=== PATIENT | female | born 1935 | race Caucasian/White ===

== ENCOUNTER 2016-11-23 12:50 | Emergency (ER) | payer MEDICARE ==
[~2016-11-23] VITALS: Ht 144.8 cm; Wt 93.6 kg
[~2016-11-23 12:50] MED LIST: ACET-171 PO; DULO60CA42 PO; FISH1CAP15 PO; FLUO10CA20 PO; HYDR-4003 PO; LEVO75TA4 PO; LOPE1TAB13 PO; PROP10TA8 PO; RIVA4.5C5 PO; TRAM50TA2 PO; VIT1TABL25 PO; VITA1CAP16 PO; [UNRECOGNIZED DRUG - CODE] PO
[2016-11-23 12:57] VITALS: BP 124/57; PULSE 53; RESP 16; O2SAT 93
--- NOTE | 2016-11-23 13:11 | ED.REPORT ---
HPI-Trauma Minor / Fall Date of Service November 23, 2016 ED Provider: Eugenio Mathew MD The patient is a 81 year old female w/ a hx of short term memory loss and dementia who presents to the ED due to hip and leg pain after a GLF when she was sitting in a recliner chair that fell over on top of her. She denies chest pain, SOB, LOC, dizziness, lightheadedness, weakness, numbness or tingling. Pt is confused and a very poor historian. Nursing Notes Stated Complaint: GROUND LEVEL FALL Chief Complaint: Multiple Trauma/Fall Nursing Notes Reviewed: Yes Allergies: Coded Allergies: Penicillins (Verified Allergy, Severe, anaphylaxis, 11/23/16) ciprofloxacin (Verified Allergy, Severe, shortness of breath, 11/23/16) capsaicin (Verified Allergy, Intermediate, burning, 11/23/16) donepezil (Verified Allergy, Intermediate, hallucinations, 11/23/16) lorazepam (Verified Allergy, Intermediate, hallucinations, 11/23/16) metronidazole (Verified Allergy, Intermediate, shortness of breath, ) blue dye (Verified Allergy, Mild, rash, 11/23/16) lisinopril (Verified Allergy, Mild, cough, 11/23/16) diclofenac (Verified Allergy, Unknown, 11/23/16) tramadol (Unverified Adverse Reaction, Mild, abdominal pain, 11/23/16) Scheduled Duloxetine (Cymbalta) 60 Mg Capsule.dr 60 MG PO DAILY Fish Oil/Dha/Epa (Fish Oil 1,200 mg Fish Oil) 1 Each Capsule 1 EACH PO DAILY Fluoxetine (Fluoxetine) 10 Mg Capsule 10 MG PO DAILY Glucosamine Sulfate (Glucosamine Sulfate) 1,000 Mg Capsule 1,500 MG PO HS Levothyroxine (Levothyroxine) 75 Mcg Tablet 50 MCG PO DAILY Propranolol HCl (Propranolol HCl) 10 Mg Tablet 20 MG PO TID Rivastigmine (Rivastigmine) 4.5 Mg Capsule 4.5 MG PO BID Vit A,C & E/Lutein/Minerals (Ocuvite with Lutein Tablet) 1 Each Tablet 1 EACH PO DAILY Vitamin B Complex & Vit C No.3 (B Complex with Vitamin C) 1 Each Capsule 1 EACH PO DAILY Scheduled PRN Acetaminophen (Acetaminophen) 500 Mg Tablet 650 MG PO Q8H PRN PRN For Pain Hydrocodone-Acetaminophen 5-325 mg (Hydrocodone-Acetaminophen 5-325 mg) 1 Each Tablet 1 TABLET PO Q8H PRN PRN For Pain Loperamide/Simethicone (Imodium Multi-Symptom Rel Cplt) 1 Each Tablet 1 EACH PO DAILY PRN PRN For Diarrhea or Loose Stool Tramadol (Tramadol) 50 Mg Tablet 50 MG PO Q4H PRN PRN For Pain General Time Seen by MD: 12:57 Chief Complaint Fall Hx Obtained From: Patient Arrived By: Walk-in Onset Occurred: Just prior to arrival Symptom Duration: Since onset Caused by: Accidental Location: Hip left Hip right Severity: Current: No pain currently Recent Healthcare: No recent doctor visit, No recent hospitalization Similar Sx Previous: No Past Medical History Past Medical History Lewy body dementia Depression Anxiety Polymyalgia rheumatica breast and colon cancer GERD Past Surgical History denies Smoking History Former Smoker Social History Alcohol Use: Denies alcohol use Drug Use: Denies drug use Other Social History: Local resident Ambulatory Status Independent Review of Systems Respiratory: Denies: Shortness of breath Musculoskeletal: Reports: Extremity pain (bilateral leg), Joint pain ( bilateral hip) Neurologic: Reports: Confusion, Denies: Change LOC, Dizziness, Headache, Lightheaded, Numbness, Problem walking, Weakness Complete sys rev & neg: except as marked. Cardiovascular: Denies: Chest pain Physical Exam Initial Vital Signs Vital Signs (First) Date Time Temp Pulse Resp B/P Pulse Ox O2 Delivery O2 Flow Rate FiO2 11/23/16 12:57 36.6 53 16 124/57 93 Room Air Initial VS: Reviewed Head / Eyes: Atraumatic, Normocephalic Respiratory: Breath sounds normal, Clear to auscultation, No respiratory distress Cardiovascular: Regular rate & rhythm, Heart sounds normal, Intact distal pulses Abdomen / GI: Soft, Non-tender, No guarding, No rebound, No distention Back: No CVA tenderness Skin: Warm, Dry Head / Eyes: Normocephalic, PERRL, EOMI ENT: Mucous membranes moist poor dentition no fluctuance no erythema Lower Extremity / Pelvis / MS: Inspection NL, Full range of motion diffuse tenderness of bilateral shins Interpretation & Diagnostics Lab Results Interpretation Test 11/23/16 14:50 Hold Urine Received (Received) X-Ray Interpretation Xray Interpretation: ANKLE X-RAY IMPRESSION: No visualized acute fracture or dislocation. However, if clinical concern and/or pain persist, short interval imaging followup in 7-10 days is recommended, as occult injury cannot be definitively excluded. Dictated by: Racquel Mitchell M.D. on 11/23/2016 at 13:57 Approved by: Racquel Mitchell M.D. on 11/23/2016 at 13:57 CT Abd / Pelvis Interpretation IMPRESSION: 1. Bilateral ovarian cystic lesions. These have slightly increased in size when compared with the study dated 08/27/14, and are unchanged in size when compared with the study dated 05/22/16. Given the chronicity of these findings, these likely represent simple ovarian cysts; however indolent cystic ovarian neoplasm cannot be excluded. Continued annual sonographic surveillance is recommended. Dictated by: Esther Rendon M.D. on 07/30/2016 at 16:50 Approved by: Esther Rendon M.D. on 07/30/2016 at 16:59 Study type: Abdominal CT no contrast Interpretation / Wet Read by: Interpret - Radiologist Re-Eval/Medical Decision Med Decision/Clinical Course 81-year-old female history of dementia presenting status post ground-level fall onto left hip and left ankle at assisted living facility. She is complaining of left hip and left ankle pain. She is ambulatory and her hip exam is completely benign. She does have mild tenderness over left lateral lower leg although x-ray ankle is negative. She is ambulatory without any difficulty. Her pain resolved while she was here. Discharged home in good condition with return precautions. Counseled Regarding: Diagnosis, Lab results, Need for follow-up, When/why to return to ED Discharge & Departure Impression: Primary Impression: Fall from ground level Additional Impressions: Pain, dental Vomiting Vomiting type: unspecified Vomiting Intractability: unspecified Nausea presence: unspecified Qualified Code: R11.10 - Vomiting, unspecified Disposition: Home Discharge Condition All VS Reviewed: Yes Condition: Stable Additional Instructions: Thank you for entrusting us with your care today. Your x-rays do not show any signs of fracture. Follow up with your primary care physician in the next week. Return to the Emergency Department for any new or worsening symptoms including dizziness, numbness, weakness, chest pain, shortness of breath, and fever. I hope you feel better soon, enjoy the sunshine! Referrals: Giuliano Segundo MD (PCP) Scribe Attestation Portion of this note were transcribed by Jo Dueñas. I, Dr. Mathew, personally performed the history, physical exam, and medical decision-making: I reviewed and confirmed the accuracy for the information in the transcribed note. Signed by: des Sheffield, 11/23/16 1500 copies to: Giuliano Segundo MD, Ben M MD November 23, 2016 13:11 Jo Dueñas November 23, 2016 13:19
--- NOTE | 2016-11-23 13:59 | DRSVH ---
PROCEDURE: X-RAY LEFT ANKLE, MINIMUM THREE VIEWS ([id number]) INDICATIONS: trauma TECHNIQUE: 3 views of the ankle were acquired. COMPARISON: None. FINDINGS: Bones: No fractures or dislocations. Ankle mortise is normally aligned. No suspicious bony lesions . Soft tissues: No tibiotalar joint effusion. Achilles tendon appears normal. IMPRESSION: No visualized acute fracture or dislocation. However, if clinical concern and/or pain pe rsist, short interval imaging followup in 7-10 days is recommended, as occult injury cannot be defini tively excluded. Dictated by: Racquel Mitchell M.D. on 11/23/2016 at 13:57 Approved by: Racquel Mitchell M.D. on 11/23/2016 at 13:57
[2016-11-23 14:51] VITALS: BP 144/58; PULSE 50; RESP 16; O2SAT 98
== END 2016-11-23 14:52 | disposition home or self-care (01) ==
LOC: SED 12:50 → EDBD 12:50 → SED 14:52
DX: K08.89 Other specified disorders of teeth and supporting structures (principal); R11.10 Vomiting, unspecified; M25.552 Pain in left hip; M25.572 Pain in left ankle and joints of left foot; W07.XXXA Fall from chair, initial encounter; Y92.129 Unspecified place in nursing home as the place of occurrence of the external cause; Y93.89 Activity, other specified; Y99.8 Other external cause status; F03.90 Unspecified dementia, unspecified severity, without behavioral disturbance, psychotic disturbance, mood disturbance, and anxiety; N83.201 Unspecified ovarian cyst, right side; N83.202 Unspecified ovarian cyst, left side; F32.9 Major depressive disorder, single episode, unspecified; F41.9 Anxiety disorder, unspecified; K21.9 Gastro-esophageal reflux disease without esophagitis; M35.3 Polymyalgia rheumatica; Z87.891 Personal history of nicotine dependence; Z88.0 Allergy status to penicillin; Z88.1 Allergy status to other antibiotic agents; Z88.8 Allergy status to other drugs, medicaments and biological substances; Z88.6 Allergy status to analgesic agent; Z88.5 Allergy status to narcotic agent

== ENCOUNTER → 2017-02-25 | Day surgery (SDC) | payer MEDICARE ==
[~2017-02-25] VITALS: Ht 152.4 cm; Wt 98.4 kg
[~2017-02-25] MED LIST changes: +IBUP-1827 PO; +Ketamine 10 mg/mL 20 mL Inj ONE; +Lactated Ringer's 1,000 ML IV ONE; +Lactated Ringer's 1,000 ML IV SCH; +METH20TA PO; +MetoCLOpramide 5 mg/mL 2 mL Inj IVPUSH PRN; +Ondansetron 2 mg/mL 2 mL Inj IVPUSH PRN; +Propofol 10,000 mCg/mL 20 mL Inj ONE
--- NOTE | 2017-02-25 07:49 | PCM.HPANE ---
Patient Data Surgeon Admitting Provider: Attending Provider:Bishop Verdin MD Primary Care Physician:Giuliano Segundo MD Other Provider:[facility] Reason for Visit Melena Ht/WT & BMI Body Mass Index Allergies Coded Allergies: Penicillins (Verified Allergy, Severe, anaphylaxis, 11/23/16) ciprofloxacin (Verified Allergy, Severe, shortness of breath, 11/23/16) capsaicin (Verified Allergy, Intermediate, burning, 11/23/16) donepezil (Verified Allergy, Intermediate, hallucinations, 11/23/16) lorazepam (Verified Allergy, Intermediate, hallucinations, 11/23/16) metronidazole (Verified Allergy, Intermediate, shortness of breath, ) blue dye (Verified Allergy, Mild, rash, 11/23/16) lisinopril (Verified Allergy, Mild, cough, 11/23/16) diclofenac (Verified Allergy, Unknown, 11/23/16) tramadol (Verified Adverse Reaction, Mild, abdominal pain, 02/25/17) Past Anesthesia History Anesthesia History: Denies:: Abnormal Airway, Anesthesia Reactions (had hallusinations), Difficult Intubation, Fam Anesthesia Reaction, Fam Malignant Hypertherm, Malignant Hyperthermia Diabetes History Hx Diabetes?: No MRSA MRSA: No Medications Hypertension Medication: No Home Meds Incl Beta Chantel: Yes Reported Medications Ibuprofen 600 Mg [id number] Mg PO QID PRN For Pain Ref 0 02/25/17 Methylphenidate (Ritalin)20 Mg Jspjkd58 Mg PO DAILY Ref 0 02/25/17 Vitamin B Complex & Vit C No.3 (B Complex with Vitamin C)1 Each Capsule1 Each PO DAILY 05/22/16 Glucosamine Sulfate 1,000 Mg Capsule1,500 Mg PO HS 05/22/16 Fluoxetine 10 Mg Prlfivz53 Mg PO DAILY Ref 0 05/22/16 Loperamide/Simethicone (Imodium Multi-Symptom Rel Cplt)1 Each Tablet1 Each PO DAILY PRN For Diarrhea or Loose Stool 05/22/16 Hydrocodone-Acetaminophen 5-325 mg 1 Each Tablet1 Tablet PO Q8H PRN For Pain Ref 0 05/22/16 Acetaminophen 500 Mg Urtlkp573 Mg PO Q8H PRN For Pain 05/22/16 Propranolol HCl 10 Mg Mwnjty73 Mg PO TID 90 Days Ref 0 08/27/14 Vit A,C & E/Lutein/Minerals (Ocuvite with Lutein Tablet)1 Each Tablet1 Each PO DAILY 08/27/14 Levothyroxine 75 Mcg Pjylps14 Mcg PO DAILY 30 Days Ref 0 08/27/14 Fish Oil/Dha/Epa (Fish Oil 1,200 mg Fish Oil)1 Each Capsule1 Each PO DAILY 08/27/14 Discontinued Reported Medications Tramadol 50 Mg Bmamzf02 Mg PO Q4H PRN For Pain Ref 0 05/22/16 Rivastigmine 4.5 Mg Capsule4.5 Mg PO BID 08/27/14 Duloxetine (Cymbalta)60 Mg Capsule.dr60 Mg PO DAILY Ref 0 08/27/14 History History of ENT Problems?: No HEENT History: Denies:: Abnormal Airway Difficult Intubation Hearing Problem Denture Type: None Teeth Condition: Within Normal Limits Hx of Heart Problems?: No Cardiovascular History: Denies:: Cardiac Surgery Chest Pain Congestive Heart Failure Edema Hypertension Irregular Heartbeat Pacemaker Thrombophlebitis Hx of Respiratory Problem?: No Respiratory History: Denies:: Asthma COPD Chest Surgery Dyspnea Emphysema Hemoptysis Pneumonia Tuberculosis Hx Neurologic Problems?: Yes Neurological History: Positive for:: CVA Dementia Dizziness (currently ) Headaches (currently ) Denies:: Alzheimer's Disease (father history ) Parkinson's Disease (father history ) Seizures Hx of GI Problems?: Yes Hx of Problems?: Yes Genitourinary History: Positive for:: Urinary Tract Infection Denies:: HX of Hemodialysis Kidney Stones HX of Peritoneal Dialysis: No Female Hx: Positive for:: Problems with Breasts? (left breast pain currently MD aware ) Denies:: Currently Hx Musculoskeletal Problems?: Yes Musculoskeletal History: Denies:: Back Injury Joint Replacement Musculoskeletal Trauma Hx of Psycho/Social Problems?: Yes Psycho Social History: Positive for:: Anxiety Hx Depression Denies:: Bipolar Disorder Suicide Attempt Hx Surgeries?: Yes Hx Any Other Health Problems?: Yes Other History: Positive for:: Cancer (breast and colon) Hospitalization Thyroid Disease (hypothy) History Blood Transfusions: Denies:: Blood Transfuse Reaction Blood Transfusions Hx Diabetes: No Hx Alcohol Use: NoHx Substance Use: No Smoking Status: Former Smoker Have You Smoked inLast 12 mo: No Stop/Bang Treated for Sleep Apnea?: No Do You Have a CPAP Machine?: No Risk Assessment Category Category 1A: Patient has history of documented sleep apnea, and HAS NOT received any narcotic, sedative or anesthesia administration during this stay. Category 1B: Patient has history of documented sleep apnea, and HAS received any narcotic , sedative or anesthesia administration during this stay Category 2: Patient has SUSPECTED Obstructive Sleep Apnea, and HAS received any narcotic , sedative or anesthesia administration during this stay. Category 3: Patient has SUSPECTED Obstructive Sleep Apnea and HAS NOT received narcotic, sedative or anesthesia administration during this stay. Category 4: Outpatient in Procedural Areas with known sleep apnea or who screen positive for High Risk via the STOP/BANG questionnaire. Exam Exam General Appearance: Alert, Oriented X3, Cooperative, No Acute Distress HEENT/AIRWAY: MP 2 Lungs: Clear to Auscultation, Normal Air Movement Heart: Exam Unremarkable, Regular Rate/Rhythm, No Murmurs/Rubs/Gallops Plan Impression Patient chart reviewed, patient interviewed and anesthestic plan with risks, benefits, and alternatives discussed, and informed consent obtained. NPO per Anesth. Guidelines: Yes ASA Physical Status: ASA3 Severe Disease (bmi 42) Anesthetic Plan: MAC Bene/Risks/Altern/Consents: Yes HP Complete Prior to Induction: Yes Ryan Farmer MD Feb 25, 2017 07:49
[2017-02-25 13:29] VITALS: BP 155/71; PULSE 47; RESP 16; O2SAT 98
[2017-02-25 14:40] VITALS: BP 135/66; PULSE 53; RESP 16; O2SAT 98
--- NOTE | 2017-02-25 14:42 | PCM.ENDEGD ---
EGD Date of Service: Feb 25, 2017 Physician Bishop Verdin MD Pre Procedure Diagnosis: Melena Post Procedure Dx & Findings: Hepatitis esophageal ulcer erosive gastropathy Procedure Esophagogastroduodenoscopy PROCEDURE IN DETAIL: The patient by anesthesiology After proper sedation, Olympus video endoscope was inserted into patient's mouth and esophagus was successfully intubated. Scope introduced esophagus. Esophagus showed normal shiny whitish mucosa consistent with squamous cell component. Z line was at 35 cm from the incisors. Inflammation and irritation noted as well as a couple of 2-3 mm clean-based ulcers. Biopsies obtained at the inflammation and ulcers. As the scope advanced into the stomach, the stomach appeared to be cylindrical and long. Erosion gastropathy noted. Between the junction of the body of the stomach there was sharp turn. We went into the antrum and the antrum also showed erosive gastropathy. Because the body was cylindrical with decreased lumen size, retroflexion was not attempted in the body. In the antrum, retroflexion was done to see if a good look at the GE junction. When retroflexion was done in the antrum, I noticed some blood from the body antrum junction. Scope was withdrawn and there was a 1 cm superficial tear. 4 clips deployed. Complete hemostasis achieved. After this , we did not try to retroflex anymore. Stomach was easily inflated and deflatable using air. Scope further advanced to the distal duodenum. Duodenum revealed normal villous structures with normal appearing folds without any mass ulcer erosion. Impression Esophagitis esophageal ulcer Erosive gastropathy Stomach seems to be postsurgical. Superficial tear between antrum and the body. 4 clips deployed to completely seal off the defect. Recommendation Clear liquid diet PPI. Presedation Assessment Risks and Benefits Informed consent was obtained from the patient after all risks and benefits including but not limited to drug reaction, infection, pain, bleeding, perforation, as well as alternatives were discussed. Patient monitoring Continuous pulse oximetry, cardiac monitoring, blood pressure monitoring, IV access, and oxygen at 2L per nasal cannula. Complications There were no periprocedural complications identified. Post Procedure Plan Post Procedure Recommendations 1. Restrict activities today. 2. Resume normal activities in the morning. 3. Resume medications. 4. GERD behavioral modification: - Avoid fatty, acidic, spicy, large meals - Do not lie down after meals - Do not eat or drink anything for at least 2 1/2 hours before going to bed at night - Discontinue tobacco and alcohol - Decrease or avoid caffeine - Avoid chocolate and mints - Decrease weight - Avoid aspirin and non steroidal anti-inflammatory agents (NSAID) such as Aleve, Advil, Mobic, Naproxen, Ibuprofen, etc 5. Add proton pump inhibitor. Take 30 minutes before 1st meal of the day. 6. Patient informed of normal post procedure side effects as bloating, drowsiness, blood streaking in the stool 7. If gastric biopsy reveal H.pylori, continue with appropriate treatment 8. If small bowel biopsy reveals celiac, continue with appropriate treatment 9. Please don't hesitate to call me with any questions Bishop Verdin MD Feb 25, 2017 14:42
--- NOTE | 2017-02-25 15:02 | PCM.ENDEGD ---
EGD Date of Service: Feb 25, 2017 Physician Bishop Verdin MD Pre Procedure Diagnosis: Diarrhea Post Procedure Dx & Findings: Possible Kim's. Gastritis. Procedure Esophagogastroduodenoscopy PROCEDURE IN DETAIL: Sedation by anesthesiology After proper sedation, Olympus video endoscope was inserted into patient's mouth and esophagus was successfully intubated. Scope introduced esophagus. Esophagus showed normal shiny whitish mucosa consistent with squamous cell component. Z line was at 40 cm from the incisors. Small irregularity less than 2 cm with salmon-colored mucosa noted at the Z line consistent with Kim 's esophagus. Four-quadrant biopsy obtained every 2 cm. Narrow banding done. No mass ulcer nodule erosion mucosa abnormality. Scope further advanced to the stomach. Stomach mucosa showed some edema and redness consistent with gastritis. Biopsies done.. Cardia fundus body antrum pylorus were all visualized. Retroflexion was done. Stomach was easily inflated and deflatable using air. Scope further advanced to the distal duodenum. Duodenum revealed normal villous structures with normal appearing folds without any mass ulcer erosion. 5 biopsies obtained in the duodenum for celiac disease. 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 Patient monitoring Continuous pulse oximetry, cardiac monitoring, blood pressure monitoring, IV access, and oxygen at 2L per nasal cannula. Complications There were no periprocedural complications identified. Post Procedure Plan Post Procedure Recommendations 1. Restrict activities today. 2. Resume normal activities in the morning. 3. Resume medications. 4. GERD behavioral modification: - Avoid fatty, acidic, spicy, large meals - Do not lie down after meals - Do not eat or drink anything for at least 2 1/2 hours before going to bed at night - Discontinue tobacco and alcohol - Decrease or avoid caffeine - Avoid chocolate and mints - Decrease weight - Avoid aspirin and non steroidal anti-inflammatory agents (NSAID) such as Aleve, Advil, Mobic, Naproxen, Ibuprofen, etc 5. Add proton pump inhibitor. Take 30 minutes before 1st meal of the day. 6. Patient informed of normal post procedure side effects as bloating, drowsiness, blood streaking in the stool 7. If gastric biopsy reveal H.pylori, continue with appropriate treatment 8. If small bowel biopsy reveals celiac, continue with appropriate treatment 9. Please don't hesitate to call me with any questions Bishop Verdin MD Feb 25, 2017 15:02
[2017-02-25 15:04] VITALS: BP 135/66; PULSE 49; RESP 16; O2SAT 98
--- NOTE | 2017-02-26 09:22 | PCM.ANEP1 ---
Post Anesthesia PACU Phase 1 Assessment Level of Alertness: Awake, talking MAY's with Equal Strength: No Pain: No Nausea or Vomiting: No CV Function & Hydration Stable: Yes Airway Device: none Lungs: Clear to Auscultation, Normal Air Movement Dermatome Level: Full Sensation PACU Phase 2 Assessment Complications: No Follow up Care: No Patient Instructions Provided: N/A Ryan Farmer MD Feb 26, 2017 09:22
--- NOTE | 2017-03-04 15:02 | PATH ---
SURGICAL PATHOLOGY Attending Physician:Bishop Verdin M.D. CASE STATUS: Signed Out PATIENT NAME: APOLINAR CARDOSO PID: [id number] : 1935 DATE COLLECTED:02/25/2017 00:00 SPECIMEN: 1: Gastric, Biopsy 2: Esophagus, Biopsy CLINICAL HISTORY: 1). GASTRIC BIOPSY RULE OUT H PYLORI 2). ESOPHAGUS BIOPSY FINAL DIAGNOSIS: 1. Stomach, Biopsy: Antral mucosa with reactive gastropathy. Negative for Helicobacter by immunohistochemistry. Negative for intestinal metaplasia. Negative for dysplasia or malignancy. 2. Esophagus Biopsies: Squamocolumnar junctional mucosa with reflux-related changes. Negative for intestinal metaplasia. Negative for dysplasia or malignancy. ICD10: R10.9 GROSS DESCRIPTION: The specimens are received in formalin, labeled with the patient's name, and sublabeled as the following: (1) gastric bx's; (2) esophagus bx's. (1) The specimen consists of multiple fragments of mejia glistening semitranslucent tissue (0.4 x 0.3 x 0.1 cm in aggregate). Section code: (1A) tissue. Specimen entirely submitted. (2) The specimen consists of multiple fragments of bradley-white glistening translucent tissue (0.5 x 0.3 x 0.1 cm in aggregate). Section code: (2A) tissue. Specimen entirely submitted. 02/27/17 MICRO DESCRIPTION: 1. An immunohistochemical stain was performed to evaluate for Helicobacter organisms and is negative. A control stain showed appropriate reactivity. 2. An alcian blue/PAS stain was performed for evaluate for intestinal metaplasia and is negative. A control stain showed appropriate reactivity. * This test was developed and its performance characteristics determined by [employer]. It has not been cleared or approved by the U.S. Food and Drug Administration. The FDA has determined that such clearance or approval is not necessary. This test is used for clinical purposes. It should not be regarded as investigational or for research. ICD-9 CODES: CPT CODES: 1: 10747, 31766 2: 03660, 81562 Electronically Signed Out Melissa Mclain MD Located Within [facility] Pathology [facility] [address], [place] [address] Technical component performed at [facility], [address], [place], [address]
== END | disposition home or self-care (01) ==
LOC: END 01:26
PROVIDERS: ATTEND Internal Medicine
DX: K92.1 Melena (principal); K22.10 Ulcer of esophagus without bleeding; K31.9 Disease of stomach and duodenum, unspecified; K75.9 Inflammatory liver disease, unspecified
CPT/HCPCS: 43239; J2704; J7120